=== PATIENT | female | born 1995 | race Caucasian/White ===

== ENCOUNTER 2020-12-17 14:41 | Observation (INO) | payer BC ==
[~2020-12-17] VITALS: Ht 170.2 cm; Wt 65.8 kg
[2020-12-17 18:02] LABS: BILIRUBIN,URINE NEGATIVE (NEGATIVE); BLOOD, URINE NEGATIVE (NEGATIVE); CLARITY/URINE CLEAR (CLEAR); COLOR,URINE YELLOW (YELLOW); GLUCOSE,URINE NEGATIVE (NEGATIVE); KETONES,URINE NEGATIVE (NEGATIVE); LEUKOCYTE ESTERASE ,URINE NEGATIVE (NEGATIVE); NITRITE, URINE NEGATIVE (NEGATIVE); PH,URINE 7.5 (5.0-8.0); PROTEIN URINE NEGATIVE (NEGATIVE); UROBILINOGEN,URINE 0.2 (0.2-1.0)
== END 2020-12-17 20:20 | disposition home or self-care (01) ==
LOC: SPU 14:41
PROVIDERS: ADMIT Specialist; ATTEND Specialist
DX: O46.93 Antepartum hemorrhage, unspecified, third trimester (principal); O62.9 Abnormality of forces of labor, unspecified; Z3A.30 30 weeks gestation of pregnancy
CPT/HCPCS: 76805; 81003; G0378

== ENCOUNTER 2021-02-05 10:29 | Observation (INO) | payer BC ==
[~2021-02-05] VITALS: Ht 170.2 cm; Wt 69.9 kg
[2021-02-05] MEDS ORDERED: TERBUTALINE SULFATE 2.5 MG TABLET PO PRN (11:00)
== END 2021-02-05 13:35 | disposition home or self-care (01) ==
LOC: SPU 10:29
PROVIDERS: ADMIT Specialist; ATTEND Specialist
DX: O36.8130 Decreased fetal movements, third trimester, not applicable or unspecified (principal); Z3A.37 37 weeks gestation of pregnancy; Z88.0 Allergy status to penicillin
CPT/HCPCS: 76815; G0378; 81002

== ENCOUNTER → 2022-03-14 | Emergency (ER) | payer BC ==
[~2022-03-14] VITALS: Ht 170.2 cm; Wt 54.9 kg
[2022-03-14 16:57] VITALS: BP_SYST 122
--- NOTE | 2022-03-14 17:07 | NUR ---
Pt brought by self, ambulatory, A&Ox4, pt presents to ER with lower abdominal pain /cramping ,pt states she is 13 weeks and she was sent by Dr Conrad to ER for further evaluation, pt denies any bleeding, pain with urination, denies N/V, skin is pink and warm, cap refill <3, will cont to monitor.
[2022-03-14 17:32] LABS: BILIRUBIN,URINE NEGATIVE (NEGATIVE); BLOOD, URINE NEGATIVE (NEGATIVE); COLOR,URINE YELLOW (YELLOW); GLUCOSE,URINE NEGATIVE (NEGATIVE); KETONES,URINE NEGATIVE (NEGATIVE); LEUKOCYTE ESTERASE ,URINE NEGATIVE (NEGATIVE); NITRITE, URINE NEGATIVE (NEGATIVE); PROTEIN URINE TRACE (NEGATIVE); UROBILINOGEN,URINE 0.2 (0.2-1.0)
--- NOTE | 2022-03-14 17:45 | NUR ---
Dr Mcneil evaluating patient at bedside
[2022-03-14 17:46] LABS: CLARITY/URINE SLIGHTLY HAZY (CLEAR)
[2022-03-14 18:06] LABS: BACTERIA,URINE FEW /HPF (None Seen); MUCUS,URINE 1+ /LPF (None Seen); RBC,URINE 0-3 /HPF (0-3); WBC,URINE 0-3 /HPF (0-3)
[2022-03-14 18:07] LABS: URINE AMORPHOUS PHOSPHATES 2+ /HPF (None Seen)
[2022-03-14 18:30] LABS: BASOPHILS % (AUTO) 0.2 % (0.0-2.0); EOSINOPHILS # (AUTO) 0.1 K/uL (0.0-0.4); EOSINOPHILS % (AUTO) 1.1 % (0.0-4.0); HEMOGLOBIN 13.2 g/dL (12.0-16.0); LYMPHOCYTES # (AUTO) 2.3 K/uL (1.0-5.5); LYMPHOCYTES % (AUTO) 23.3 % (20.5-51.5); MEAN CORPUSCULAR HEMOGLOBIN 31 pg (27-31); MEAN CORPUSCULAR HGB CONC 35 % (32-36); MEAN CORPUSCULAR VOLUME 90 fL (79.0-98.0); MONOCYTES # (AUTO) 0.7 K/uL (0.0-1.0); MONOCYTES % (AUTO) 7.5 % (1.7-9.3); NEUTROPHILS # (AUTO) 6.7 K/uL (1.8-7.7); NEUTROPHILS % (AUTO) 67.9 % (40.0-70.0); PLATELET COUNT (AUTO) 201 K/uL (130-430); RED BLOOD CELL COUNT(AUTO) 4.22 MIL/uL (4.2-6.2); RED CELL DISTRIBUTION WIDTH 13.2 % (9.0-15.0); WHITE BLOOD COUNT (AUTO) 9.9 K/uL (4.8-10.8)
[2022-03-14 18:42] LABS: CALCIUM 9.1 mg/dL (8.4-11.0); CREATININE 0.52 mg/dL (0.55-1.30); POTASSIUM 3.9 mmol/L (3.5-5.1)
--- NOTE | 2022-03-14 18:52 | NUR ---
Patient given written and verbal discharge instructions and verbalizes understanding. ER MD discussed with patient the results and treatment provided. Patient in stable condition. ID arm band removed. No Rx given. Patient educated on pain management and to follow up with PMD. Pain Scale 2/10 Opportunity for questions provided and answered. Medication side effect fact sheet provided.
[2022-03-14 19:02] LABS: ALBUMIN 3.9 g/dL (3.4-4.8); TOTAL BILIRUBIN 0.3 mg/dL (0.0-1.0)
== END | disposition home or self-care (01) ==
LOC: SED 16:53
DX: O26.891 Other specified pregnancy related conditions, first trimester (principal); R10.30 Lower abdominal pain, unspecified; Z88.0 Allergy status to penicillin; Z3A.12 12 weeks gestation of pregnancy
CPT/HCPCS: 36415; 76801; 80053; 81000; 81025; 84702; 85025; 86900; 86901; 99284

== ENCOUNTER 2022-09-06 14:08 | Inpatient (IN) | payer BC ==
[~2022-09-06] VITALS: Ht 170.2 cm; Wt 70.3 kg
[2022-09-06] MEDS ORDERED: LR 1,000 ML IV ONE (15:15)
[2022-09-06] MEDS ORDERED: LR 1,000 ML IV SCH (15:15)
[2022-09-06 15:45] LABS: BASOPHILS % (AUTO) 0.3 % (0.0-2.0); EOSINOPHILS % (AUTO) 0.3 % (0.0-4.0); HEMATOCRIT 34.9 % (36-48); LYMPHOCYTES # (AUTO) 1.3 K/uL (1.0-5.5); LYMPHOCYTES % (AUTO) 12.8 % (20.5-51.5); MEAN CORPUSCULAR HEMOGLOBIN 32 pg (27-31); MEAN CORPUSCULAR HGB CONC 34 % (32-36); MEAN CORPUSCULAR VOLUME 94 fL (79.0-98.0); MONOCYTES # (AUTO) 0.7 K/uL (0.0-1.0); MONOCYTES % (AUTO) 6.9 % (1.7-9.3); NEUTROPHILS # (AUTO) 7.8 K/uL (1.8-7.7); NEUTROPHILS % (AUTO) 79.7 % (40.0-70.0); PLATELET COUNT (AUTO) 157 K/uL (130-430); RED BLOOD CELL COUNT(AUTO) 3.73 MIL/uL (4.2-6.2); RED CELL DISTRIBUTION WIDTH 13.1 % (9.0-15.0); WHITE BLOOD COUNT (AUTO) 9.8 K/uL (4.8-10.8)
[2022-09-06 19:18] VITALS: BP_SYST 111
[2022-09-07] MEDS: NALBUPHINE HCL 10 MG/ML AMP IVP PRN ×2 (01:44→08:51)
[2022-09-07] MEDS ORDERED: LIGHT MINERAL OIL 10 ML VIAL MC ONE (02:31)
[2022-09-07] MEDS ORDERED: NALOXONE HCL 0.4 MG/ML AMP (NARCAN) ONE (02:31)
[2022-09-07] MEDS ORDERED: LIDOCAINE PF 1% 30ML(POUR BTL) INJ ONE (02:31)
[2022-09-07] MEDS ORDERED: OXYTOCIN/0.9 % SODIUM CHLORIDE 1,000 ML IV SCH (06:15)
[2022-09-07] MEDS ORDERED: TERBUTALINE SULFATE 1 MG/ML VIAL SUBCUT ONE (06:15)
[2022-09-07] MEDS ORDERED: fentaNYL CITRATE/PF 100 MCG/2 ML AMP ONE (09:08)
[2022-09-07] MEDS ORDERED: ROPIVACAINE HCL/PF 0.2% 0 ML ONE (09:09)
[2022-09-07] MEDS ORDERED: DERMOPLAST SPRAY TP PRN (12:00)
[2022-09-07] MEDS ORDERED: MEASLES,MUMPS&RUBELLA VACC/PF 12500 UNIT/0.5 ML VIAL SUBQ PRN (12:00)
[2022-09-07] MEDS ORDERED: OXYTOCIN/0.9 % SODIUM CHLORIDE 1,000 ML IV ONE (12:00)
[2022-09-07] MEDS ORDERED: LANOLIN 7 GM OINT. TP PRN (12:00)
[2022-09-07] MEDS ORDERED: DIPHTH,PERTUSS(ACELL),TET VAC 0.5 ML VIAL (Tdap) I.M. PRN (12:00)
[2022-09-07] MEDS ORDERED: WITCH HAZEL LEAF 1 MED.PAD MED.PAD TP PRN (12:00)
[2022-09-07] MEDS ORDERED: ANUSOL 1 EA SUPP.RECT (PREPARATION H) RC PRN (12:00)
[2022-09-07] MEDS ORDERED: HYDROCORTISONE 0.5% CREAM 28.4 GM CREAM.GM. TP PRN (12:00)
[2022-09-07] MEDS: IBUPROFEN 600 MG TABLET PO SCH ×2 (13:00→18:21)
[2022-09-07] MEDS ORDERED: SENNOSIDES/DOCUSATE SODIUM 1 TAB TABLET(SENOKOT-S) PO SCH (21:00)
[2022-09-08] MEDS: IBUPROFEN 600 MG TABLET PO SCH ×2 (00:12→06:17)
[2022-09-08 06:56] LABS: HEMATOCRIT 30.5 % (36-48); HEMOGLOBIN 10.8 g/dL (12.0-16.0)
[2022-09-08] MEDS ORDERED: DOCUSATE SODIUM 100 MG CAPSULE PO SCH (09:00)
[2022-09-11 22:06] LABS: FTA-Ab (T PALLIDUM) Non Reactive (Non Reactive)
== END 2022-09-08 12:05 | disposition home or self-care (01) | DRG 806 ==
LOC: SPU 14:08
PROVIDERS: ADMIT Specialist; ATTEND Specialist
PROC: 10D07Z6 Extraction of Products of Conception, Vacuum, Via Natural or Artificial Opening (ICD-10-PCS; principal; 2022-09-07)
PROC: 3E0R3BZ Introduction of Anesthetic Agent into Spinal Canal, Percutaneous Approach (ICD-10-PCS; 2022-09-07)
PROC: 00HU33Z Insertion of Infusion Device into Spinal Canal, Percutaneous Approach (ICD-10-PCS; 2022-09-07)
DX: O36.8130 Decreased fetal movements, third trimester, not applicable or unspecified (principal); D62 Acute posthemorrhagic anemia; Z37.0 Single live birth; O69.81X0 Labor and delivery complicated by cord around neck, without compression, not applicable or unspecified; Z3A.37 37 weeks gestation of pregnancy; Z20.822 Contact with and (suspected) exposure to COVID-19
CPT/HCPCS: 36415; 81002; 85018; 85025; 86592; 86780; 86886; 86900; 86901; J2001; J2300; J2310; J2590; J3010; J7120